=== PATIENT | female | born 1960 | race Caucasian/White ===

== ENCOUNTER → 2016-05-14 | Outpatient (CLI) | payer BC | LOC: MC.RAD 10:20 | DX: Z12.31 Encounter for screening mammogram for malignant neoplasm of breast (principal) ==

== ENCOUNTER → 2018-05-08 | Outpatient (CLI) | payer BC | LOC: COL.RAD 12:46 | DX: I10 Essential (primary) hypertension (principal); R06.02 Shortness of breath; R07.89 Other chest pain | CPT/HCPCS: Q9967 ==

== ENCOUNTER → 2018-12-15 | Outpatient (CLI) | payer BC | LOC: COL.RAD 08:07 | DX: R07.89 Other chest pain (principal); R91.8 Other nonspecific abnormal finding of lung field; R06.02 Shortness of breath | CPT/HCPCS: Q9967 ==

== ENCOUNTER → 2020-01-27 | Outpatient (CLI) | payer BC | LOC: MC.RAD 13:48 | DX: N64.52 Nipple discharge (principal) ==

== ENCOUNTER 2020-03-04 08:20 | Day surgery (SDC) | payer BC ==
[~2020-03-04] VITALS: Ht 162.6 cm; Wt 78.2 kg
[2020-03-04 08:42] VITALS: BP 145/57; PULSE 78; TEMP 98.9
[2020-03-04] MEDS ORDERED: NORVASC 10MG10 MG PO (08:45)
[2020-03-04] MEDS ORDERED: TOPROL XL 50MG50 MG PO (08:46)
[2020-03-04] MEDS ORDERED: COZAAR100 MG PO (08:46)
[2020-03-04] MEDS ORDERED: TRESIBA FL100 UNIT/1 SQ (08:47)
[2020-03-04] MEDS ORDERED: TRULICITY0.75 MG/0. SQ (08:47)
[2020-03-04] MEDS ORDERED: CRESTOR5 MG PO (08:48)
[2020-03-04] MEDS ORDERED: PRIL40 PO (08:49)
[2020-03-04] MEDS ORDERED: TYLENOL 500MG500 MG PO (08:49)
[2020-03-04] MEDS ORDERED: NOVOLOG FLEX100 U/ML SQ (09:04)
[2020-03-04] MEDS ORDERED: ASPIRIN 81M81 MG/TA2 PO (09:04)
[2020-03-04] MEDS ORDERED: NORCO 325 MG-51 TAB PO (11:42)
[2020-03-04 12:23] VITALS: BP 115/86; PULSE 71; TEMP 97.6
--- NOTE | 2020-03-04 12:23 | NUR ---
The patient arrived back to [facility] from the recovery room at this time. The patient appears alert and orietned and denies any pain or nausea at this time. The patient's dressing to her left breast appears clean, dry and intact. Post operative vital signs were started at this time. The patient agrees to try some ice water at this time. Call light is within reach. Will continue to monitor the patient.
[2020-03-04 12:38] VITALS: BP 126/61; PULSE 74
--- NOTE | 2020-03-04 12:38 | NUR ---
The patient appeared to tolerate the water well and agrees to try some hot tea and a blueberry muffin. Vital signs appear stable. Will continue to monitor the patient.
[2020-03-04 12:53] VITALS: BP 138/66; PULSE 71
--- NOTE | 2020-03-04 12:53 | NUR ---
The patient appears to be tolerating the food and drink well. The patient continues to report minimal pain in her left breast at this time. Will continue to monitor the patient.
[2020-03-04 13:08] VITALS: BP 138/56; PULSE 70
--- NOTE | 2020-03-04 13:08 | NUR ---
The patient appears to be resting comfortably on the cart at this time. Vital signs appear stable. Will continue to monitor the patient.
--- NOTE | 2020-03-04 13:26 | NUR ---
The patient ambulated to the bathroom with the stand by assistance of one nurse and appeared to tolerate the activity well. The nurse instructed the patient that if she was able to void that she could get dressed and notify the staff when she is ready to review her discharge paperwork.
--- NOTE | 2020-03-04 13:35 | NUR ---
Discharge instructions were reviewed with the patient at this time. She verbalzed understanding and has no questions for the nurse at this time. The patient's IV to her right forearm was removed and a pressure dressing was applied to the site.
--- NOTE | 2020-03-04 13:45 | NUR ---
The patient was escorted out via wheelchair to a private vehicle by DYLAN Burr. The patient's belongings and discharge paperwork sent her. The patient's friend is present to drive her home.
[2020-03-04 17:17] VITALS: BP 132/67; PULSE 68; TEMP 97.6
== END 2020-03-04 13:45 | disposition home or self-care (01) ==
LOC: SDCO 08:20
DX: D24.2 Benign neoplasm of left breast (principal); N64.52 Nipple discharge; I10 Essential (primary) hypertension; E78.00 Pure hypercholesterolemia, unspecified; E11.9 Type 2 diabetes mellitus without complications; K21.9 Gastro-esophageal reflux disease without esophagitis; Z20.828 Contact with and (suspected) exposure to other viral communicable diseases; Z79.4 Long term (current) use of insulin
CPT/HCPCS: J1100; J2250; J2405; J2704; J2765; J2795; J3010; J7030